=== PATIENT | female | born 1980 | race Caucasian/White ===

== ENCOUNTER 2023-06-15 10:38 | Outpatient (REF) | payer OTHER, SELFPAY ==
[2023-06-15 12:54] LABS: MANUAL DIFF FLAG NO
[2023-06-15 13:03] LABS: Basophils Percent Auto 0.4 % (0-2); Eosinophils Percent Auto 0.4 % (0-4); Hematocrit 42.9 % (37.0-47.0); Hemoglobin 14.2 g/dl (12.0-16.0); Imm Gran Abs Auto 0.02 X10*3/uL (0.00-0.03); Imm Gran Pct Auto 0.2 % (0.0-0.4); Lymphocytes Percent Auto 24.2 % (20-40); Mean Corpuscular HGB Conc 33.1 g/dl (31.0-35.0); Mean Corpuscular Hemoglobin 31.6 pg (27.0-33.0); Mean Corpuscular Volume 95.3 fL (80.0-98.0); Monocytes Absolute Auto 0.5 X10*3/uL (0.1-1.2); Neutrophils Absolute Auto 5.7 x10*3/uL (2.0-8.3); Neutrophils Percent Auto 68.8 % (45-73); Platelet Count 298 X10*3/uL (160-400); Red Cell Distribution Width 14.5 % (11.0-16.0); White Blood Count 8.3 X10*3/uL (4.8-10.8)
[2023-06-15 13:50] LABS: Thyroid Stimulating Hormone 1.11 uIU/mL (0.32-4.0); Vitamin D 25-OH Total 22.5 ng/mL (>30)
[2023-06-15 13:51] LABS: Alanine Aminotransferase 31 U/L (0-31); Albumin Level 4.6 g/dL (3.5-5.0); Alkaline Phosphatase 49 U/L (39-117); Anion Gap 11 (12-20); Aspartate Amino Transferase 33 U/L (5-31); Bilirubin Total 0.7 mg/dL (0.0-1.0); Blood Urea Nitrogen 12 mg/dL (9-16); Calcium 9.7 mg/dL (8.4-10.2); Carbon Dioxide 28 mmol/L (22-29); Chloride 106 mmol/L (96-108); Cholesterol 279 mg/dL (<200); Estimated Glomerular Filt Rate > 60; Glucose Random 101 mg/dL (60-115); HDL Cholesterol 85 mg/dL (>40); LDL Cholesterol Calculated 180 mg/dL (<100); Potassium 4.2 mmol/L (3.3-5.1); Sodium 141 mmol/L (135-145); Total Protein 7.7 g/dL (6.5-8.0); Triglycerides 74 mg/dL (<150)
== END 2023-06-15 10:39 | disposition home or self-care (01) ==
LOC: HO.MANLDS 10:38
PROVIDERS: Visit Provider Internal Medicine
DX: Z00.00 Encounter for general adult medical examination without abnormal findings (principal); Z13.6 Encounter for screening for cardiovascular disorders
CPT/HCPCS: 36415; 80053; 80061; 82306; 84443; 85025

== ENCOUNTER 2024-06-09 11:53 | Outpatient (REF) | payer OTHER, SELFPAY ==
[2024-06-09 13:07] LABS: MANUAL DIFF FLAG NO
[2024-06-09 13:46] LABS: Basophils Percent Auto 0.5 % (0-2); Eosinophils Absolute Auto 0.1 X10*3/uL (0.0-0.4); Eosinophils Percent Auto 0.7 % (0-4); Hemoglobin 12.9 g/dl (12.0-16.0); Imm Gran Abs Auto 0.02 X10*3/uL (0.00-0.03); Imm Gran Pct Auto 0.3 % (0.0-0.4); Lymphocytes Absolute Auto 1.9 X10*3/uL (1.2-4.9); Mean Corpuscular HGB Conc 33.1 g/dl (31.0-35.0); Mean Corpuscular Hemoglobin 31.1 pg (27.0-33.0); Mean Platelet Volume 10.1 fL (9.4-12.3); Monocytes Absolute Auto 0.6 X10*3/uL (0.1-1.2); Monocytes Percent Auto 7.6 % (2-11); Neutrophils Absolute Auto 5.1 x10*3/uL (2.0-8.3); Neutrophils Percent Auto 65.9 % (45-73); Platelet Count 284 X10*3/uL (160-400); Red Blood Count 4.15 X10*6/uL (4.20-5.50); Red Cell Distribution Width 13.9 % (11.0-16.0); White Blood Count 7.7 X10*3/uL (4.8-10.8)
[2024-06-09 14:16] LABS: C Reactive Protein 0.26 mg/dL (< or = 0.50)
[2024-06-09 14:38] LABS: Erythrocyte Sedimentation Rate 9 MM/HR (0-20)
== END 2024-06-09 11:54 | disposition home or self-care (01) ==
LOC: HO.MANLDS 11:53
PROVIDERS: Visit Provider Internal Medicine
DX: M66.0 Rupture of popliteal cyst (principal)
CPT/HCPCS: 36415; 85025; 85652; 86140

== ENCOUNTER 2024-06-20 11:10 | Outpatient (REF) | payer OTHER, SELFPAY ==
--- OUTSIDE RECORDS SUMMARY | 2024-06-20 13:40 | XMS_ITS | Continuity of Care Document ---
Author Organization [facility], [facility] Address [address] [place] [address] [place] [address] Assessment No assessment recorded. Plan of Treatment Reminders Order Date Submit Date Provider Last Modified By Organization Details Last Modified Time Details Appointments ANNUAL EXAM 2024 10:30A M DR FREEMAN Not available Not available Not available Lab iron + TIBC + ferritin, serum 2024 025 [facility], [address] [place] [address], [id number], 06/20/2024 11:03:36 lipid panel, blood 2024 025 [facility], [address] [place] [address], [place], [address], 06/20/2024 11:03:36 CMP, serum or plasma 2024 025 [facility], [address] [place] [place] [address], [id number], 06/20/2024 11:03:36 vitamin D, 25-hydrox y, total, serum 2024 025 [facility], [address] [place] [address], [id number], 06/20/2024 11:03:36 Referral None recorded. Procedures None recorded. Surgeries None recorded. Imaging CT, heart, w/o contrast, w/ coronary calcium score [address] [facility] [place] [address], [address], [place], [address], 06/20/2024 11:02:30 Medication Orders None recorded. Patient TargetsNo targets recorded. Patient InstructionsNo instructions recorded. Reason for Referral None Reported. Results Created Date Observation Date Name Description Value Unit Range Abnormal Flag Note LastModifiedBy Organization Detail LastModifiedTime 05/31/19 25 05/30/2024 MAMMO , scree golden, digit al, bilat eral No observ ation record ed. [email or web address] [facility] [address] [facility] [address] [facility] [address], [place], [address], 05/30/2024 14:52:50 06/09/19 25 06/08/2024 US, duple x, venou s, lower extre mity, unila teral No observ ation record ed. [email or web address] [facility] [address], [place], [address], 06/09/2024 14:16:45 06/10/19 25 06/09/2024 XR, knee, 3 view No observ ation record ed. [email or web address] [facility] [address] , [place], [address], 06/11/2024 21:17:22 06/19/19 25 06/17/2024 MRI, knee, w/o contr ast No observ ation record ed. [email or web address] [facility] [place] [address] [facility] [place] [address] [place] [address], [id number], 06/20/2024 12:19:18 Result Notes None recorded. Problems Name Problem SNOMED Code Status Onset Date Resolution Date Notes Provider Name and Address Organization Details Recorded Time Impacted cerumen 57630759 Active 2021 Not Available [facility] 2 10:48:34 Influenza -like symptoms 141499116 Active 2021 Not Available [facility] 2 10:48:33 Instabili ty of joint of right knee 891932366592 9102 Active 2022 Negro Freeman DO [address] [place] [address], [address], [facility] 3 13:29:59 Melanocyt ic nevus of skin 124766685 Active 2022 Negro Freeman DO [address] [place] [address], [address], [facility] 3 12:30:12 Impacted cerumen of bilateral ears 661259020303 9108 Active 2022 ISAEL CROOKS [address] [place] [address], [address], [facility] 3 11:37:59 Chronic recurrent sinusitis 504364534 Active 2022 ISAEL CROOKS [address] [place] [address], [address], [facility] 3 11:40:11 Orbital celluliti s 892551888 Active 2023 ISAEL CROOKS [address] [place] [address], [address], [facility] 4 19:31:01 Dysplasti c nevus of skin 540578143 Active 2023 Negro Freeman DO [address] [place] [address], [address], [facility] 4 10:26:21 Chronic sinusitis 55547823 Active 2023 Negro Freeman DO [address] [place] [address], [address], [facility] 4 10:29:41 Hyperchol esterolem ia 14930563 Active 2023 Negro Freeman DO [address] [place] [address], [address], [facility] 4 20:56:42 Abnormal weight gain 029922506 Active 2023 ISAEL CROOKS [address] [place] [address], [address], [facility] 4 11:30:49 Loss of hair 144868888 Active 2023 ISAEL CROOKS [address] [place], [address], [facility] 4 11:35:09 Nail changes 975908558 Active 2023 ISAEL CROOKS [address] [place], [address], [facility] 4 11:38:45 Hyperlipi demia 49432878 Active 2023 ISAEL CROOKS [address] [place], [address], [facility] 4 11:41:22 Skin lesion 58353725 Active 2023 ISAEL CROOKS [address] [place] [address], [address], [facility] 4 14:19:39 Celluliti s of skin 483109150 Active 2023 ISAEL CROOKS [address] [place] [address], [address], [facility] 4 14:20:28 Pain in left foot 739078285761 107 Active 2023 ISAEL CROOKS [address] [place] [address], [address], [facility] 4 14:25:17 Pain of left hip joint 057055464726 100 Active 2024 ISAEL CROOKS [address] [place], [address], [facility] 5 09:45:28 Carpal tunnel syndrome of right wrist 615275761160 108 Active 2024 ISAEL CROOKS [address] [place], [address], [facility] 5 09:53:21 Cervical radiculop athy 34910424 Active 2024 ISAEL CROOKS [address] [place], [address], [facility] 5 09:54:23 Pain of left calf 319723382730 9109 Active 2024 ISAEL CROOKS [address] [place], [address], [facility] 5 09:33:09 Rupture of synovial popliteal cyst Active 2024 Negro Freeman, [address], [address], [facility] 5 11:46:43 Serum ferritin above reference range 626654098 Active 2024 Negro Freeman, [address], [address], [facility] 5 11:01:18 Problem Notes None recorded. Procedures Surgical History Date Name Laterality Status Provider Name and Address Organization Details Recorded Time 06/20/19 23 Date of Last Pap Smear completed Shanna Hoang [facility] 06/19/2022 17:01:09 11/06/19 22 Cerumen Removal completed ISAEL CROOKS [address] [place] [address], [address], [facility] 11/05/2021 10:52:27 Appendectomy completed Gia Harris [facility] 09/23/2020 16:43:09 Knee [facility] 16:44:05 Imaging Results None recorded. Procedure Notes None recorded. Medical Equipment None Reported. Allergies No known drug allergies Medications Name Sig Start Date Stop Date Status Note LastModified by Organization Details LastModified Time celecoxib 200 mg capsule TAKE 1 CAPSULE BY MOUTH EVERY DAY 03/27 completed Not Available Not Available Not Available Mirena 21 mcg/24 hr (up to 8 years) 52 mg intrauterin e device Take by intrauter ine route. active Not Available Not Available No t Available prednisone 10 mg tablet 50 mg x 3 days40 mg x 3 days30 mg x 3 days20 mg x 3 days10 mg x 3 days 06/14 completed Not Available Not Available Not Available doxycycline hyclate 100 mg capsule TAKE 1 CAPSULE BY MOUTH TWICE A DAY FOR 7 DAYS 03/27 completed Not Available Not Available Not Available Apri 0.15 mg-0.03 mg tablet TAKE 1 TABLET BY MOUTH EVERY DAY active Not Available Not Available No t Available meloxicam 15 mg tablet ONCE A DAY TAKE 1 TAB WITH FOOD 10/16 completed Not Available Not Available Not Available ondansetron HCl 4 mg tablet TAKE 1 TABLET BY MOUTH EVERY 8 HOURS FOR 3 DAYS 09/23 completed Not Available Not Available Not Available Zyrtec 10 mg tablet Take 1 tablet every day by oral route. 06/09 completed Not Available Not Available Not Available metronidazo le 500 mg tablet TAKE 1 TABLET BY MOUTH EVERY 8 HOURS FOR 10 DAYS DIRECTED 06/14 completed Not Available Not Available Not Available sulfamethox azole 800 mg-trimetho prim 160 mg tablet TAKE 1 TABLET BY MOUTH TWICE A DAY FOR 8 DAYS 07/16 completed Not Available Not Available Not Available doxycycline monohydrate 100 mg tablet TAKE 1 TABLET BY MOUTH TWO TIMES A DAY FOR 14 DAYS 09/23 completed Not Available Not Available Not Available amoxicillin 875 mg tablet TAKE 1 TABLET BY MOUTH EVERY 12 HOURS FOR 7 DAYS 06/09 completed Not Available Not Available Not Available erythromyci n 5 mg/gram (0.5 %) eye ointment APPLY 1 CM RIBBON INTO THE LOWER CONJUNCTI JIMBO SAC OF AFFECTED EYE(S) 3 TIMES PER DAY 11/05 completed Not Available Not Available Not Available oseltamivir 75 mg capsule Take 1 capsule twice a day by oral route for 5 days. 06/09 completed Not Available Not Available Not Available omeprazole 20 mg capsule,del ayed release Take 1 capsule every day by oral route. active Not Available Not Available No t Available montelukast 10 mg tablet Take 1 tablet every day by oral route for 30 days. 06/14 completed Not Available Not Available Not Available loteprednol etabonate 0.5 % eye drops,suspe nsion 1 DROP IN BOTH EYES 3 TIMES A DAY DIRECTED. AFTER 1 WEEK,1 DROP INTO BOTH EYES TWICE DAILY 06/14 completed Not Available Not Available Not Available ibuprofen 600 mg tablet TAKE 1 TABLET BY MOUTH EVERY 8 HOURS FOR 7 DAYS 12/19 completed Not Available Not Available Not Available levofloxaci n 500 mg tablet Take 1 tablet every 24 hours by oral route for 10 days. 06/14 completed Not Available Not Available Not Available ondansetron 4 mg disintegrat ing tablet PLACE 1 TABLET EVERY 4-6 HOURS BY TRANSLING UAL ROUTE NEEDED. 07/16 completed Not Available Not Available Not Available amoxicillin 875 mg-potassiu m clavulanate 125 mg tablet Take 1 tablet every 12 hours by oral route for 10 days. 06/09 completed Not Available Not Available Not Available cyclobenzap rine 5 mg tablet TAKE 1 TABLET BY MOUTH EVERY 12 HOURS NEEDED 06/09 completed Not Available Not Available Not Available Celebrex active Not Available Not Avai lable Not Available Vitals Date Recorded Body height Body mass index (BMI) Body weight Heart rate Oxygen saturation Oxygen saturation in Arterial blood by Pulse oximetry Systolic blood pressure Diastolic blood pressure Provider Name and Address Organization Details Last Updated DateTime 5 169.55 cm 22.7 kg/m2 59979.3 g 69 /min 98 % 98 % 104 mm[Hg] 60 mm[Hg] Danielle Soto [facility] 10:33:37 Social History Question Answer Notes LastModified by Organizat ion Details LastModified Time Tobacco Smoking Status [facility]/2020 12:07:26 What Is Your Level Of Alcohol Consumption? Occasional Information not available 09/23/2020 What Is Your Level Of Caffeine Consumption? Moderate Information not available 09/23/2020 What Was The Date Of Your Most Recent Tobacco Screening? 06/20/2024 [email or web address] Information not available 06/20/2024 Do You Use Any Illicit Or Recreational Drugs? No [email or web address] Information not available 06/09/2022 Do You Or Have You Ever Used Any Other Forms Of Tobacco Or Nicotine? No [email or web address] Information not available 06/20/2024 Sex: Unknown Functional Status Question Answer Note LastModified by Organization D etails LastModified Time What is your exercise level? Moderate Information not available 09/23/2020 Mental Status None recorded. Family History Relationship Description Onset Age of this Age Resolved Age Notes LastModified by Organization Details LastModified Time Maternal Grandmother Malignant neoplastic disease [email or web address] Not available 2024 10:26:59 Paternal Grandmother Malignant neoplastic disease [email or web address] Not available 2024 10:26:59 Paternal Grandfather Heart disease [email or web address] Not available 2020 16:46:11 Paternal Grandfather Cerebrovascu lar accident [email or web address] Not available 02/2021 16:47:17 Father Arthritis tbalicki Not availabl e 09/23/2020 16:46:23 Mother Arthritis tbalicki Not availabl e 09/23/2020 16:46:23 Mother Atrial fibrillation [email or web address] Not available 10/2024 10:26:59 Medical History No medical history recorded. Gynecological History Statement/Question Response Date of Last Pap Smear 06/19/2022 Obstetrics History GPAL:G 0 P 0 0 0 0 Immunizations Vaccine Type Date Status Note Provider Nam e and Address Organization Details Recorded Time COVID-19, mRNA, LNP-S, PF, 30 mcg/0.3 mL dose 1 completed Shanna salamanca [facility] 09/23/2020 12:06:54 COVID-19, mRNA, LNP-S, PF, 30 mcg/0.3 mL dose 1 completed Shanna salamanca [facility] 09/23/2020 12:07:04 Influenza, split virus, quadrivalent, preservative 1 completed Negro Freeman, [address] [place] [address], [address], [facility] 06/03/2021 09:59:58 influenza, unspecified formulation 2 completed Shanna salamanca [facility] 02/16/2022 10:54:28 Past Encounters Encounter ID Performer Location Encounter Start Date Encounter Closed Date Diagnosis/Indication Diagnosis SNOMED-CT Code Diagnosis ICD10 Code Diagnosis Note [id number] [facility] [address] [facility],[place] [address] 06/07/2024 09:20:00 06/07/2024 10:32:27 Pain of left calf 8390535424 638420 M79.662 [id number] Negro Freeman [facility] [address] [facility],[place] [address] 06/20/2024 10:26:34 06/20/2024 11:08:17 Hypercholesterolemia 08011170 E78.00 Serum ferr itin above reference range 422779164 R77.8 [id number] Negro Freeman [facility] [address] [facility], [place] [facility] [place] [address] 06/09/2024 11:27:36 06/09/2024 12:07:32 Rupture of synovial popliteal cyst 3899294030 M66.0 severe pain Health Concerns Section Related Observation LastModified by Organization Detai ls LastModified Time None Recorded Concern Status LastModified by Organization Details LastModified Time None Recorded Payers Encounter Date Sequence Insurance Name Policy Number Policy Cool Covered Member ID Cool Member ID Guarantor Name 06/20/2024 1 [facility] (POS) [id number] Sarthak Garcia [id number] Nasreen Garcia OBGykarin Episode No OBEpisode recorded.
--- OUTSIDE RECORDS SUMMARY | 2024-06-20 13:40 | XMS_ITS | Clinical Summary ---
Author Organization [facility] Address [address] [place] [address] Care Team Providers Care Ems Educator Name Role Phone Fly Wagner DO Primary Care Provider [phone] Social History Tobacco Use Types Packs/Day Years Used Date Smoking Tobacco: Never Assessed Sex and Gender Information Value Date Recorded Sex Assigned at Not on file Gender Identity Not on file Sexual Orientation Not on file Plan of Treatment Health Maintenance Due Date Last Done Comments Hepatitis B Vaccines (1 of 3 - 3-dose series) 1978 Hepatitis C Screening 1978 COVID-19 Vaccine (#1) 01/06/1979 Depression Screening 1990 Preventative Health Evaluation 1996 DTap / Tdap / Td (1 - Tdap) 1997 Cervical Cancer Screening (P ap Smear) 07/08/1999 Colon Cancer Screening (Colonoscopy) 07/08/2023 Influenza Vaccine (#1) 2023 Pneumococcal Vaccine Aged Out No long er eligible based on patient's age to complete this topic RSV Ped < 20 months Aged Out No longe r eligible based on patient's age to complete this topic Care Teams Ems Educator Relationship Specialty Start Date End Date Fly Wagner DO [address] [place] [id number] PCP - General Family Medicine 05/07/15
--- OUTSIDE RECORDS SUMMARY | 2024-06-20 13:40 | XMS_ITS | Data Portability ---
Author Organization [place] - [facility], Allergy Address [address] [place] [address] Care Team Providers Care Shoe Handler Name Role Phone DINA FREEMAN Primary Care Provider Assessment No assessment recorded. Plan of Treatment Reminders Order Date Submit Date Provider Last Modified By Organization Details Last Modified Time Details Appointments None record ed. Lab None record ed. Referral None record ed. Procedures None record ed. Surgeries None record ed. Imaging None record ed. Medication Orders None record ed. Patient TargetsNo targets recorded. Patient InstructionsNo instructions recorded. Reason for Referral None Reported. Results Created Date Observation Date Name Description Value Unit Range Abnormal Flag Note LastModifiedBy Organization Detail LastModifiedTime 02/02/20 24 10/29/2022 CT, maxil lofac ial, w/o contr ast No observ ation record ed. [email or web address] Not Available 01/14 12:54:53 02/03/20 audio gram No observ ation record ed. BARCODE Not Available 2023 12:31:49 Result Notes None recorded. Problems Name Problem SNOMED Code Status Onset Date Resolution Date Notes Provider Name and Address Organization Details Recorded Time Chronic tonsillit is 11192816 Active 2019 Chronic tonsilli tis; Note: Date Diagnose d: 0 3:36 PM (J35.01) Not Available [facility] 4 03:28:03 Chronic disease of tonsils AND/OR adenoids 96606979 Active 2019 Amygdalo lith; Note: Date Diagnose d: 0 3:36 PM (J35.8) Not Available [facility] 4 03:28:03 Chronic right maxillary sinusitis 854127466345 89528 Active 2023 ADINA VÁSQUEZ MD [address] [facility],[place] [address], [place], [address] , [facility] - [facility] 4 11:45:50 Otalgia of left ear 6308967508 Active 2023 ADINA VÁSQUEZ MD [address] [place] [address], [place], [address] , [facility] - [facility] 4 11:45:57 Impacted cerumen in left ear 717424966702 9101 Active 2023 ADINA VÁSQUEZ MD [address] [place] [address], [place], [address] , [facility] 4 11:48:13 Abnormal auditory perceptio n 31208667 Active 2023 MIRTHA OSWALD [address] [place] [address], [place], [address] , [facility] - [facility] 4 12:01:10 Bilateral subjectiv e pulsatile tinnitus of ears 548010360879 9102 Active 2023 ADINA VÁSQUEZ MD [address] [place] [address],[place] [address], [place], [address] , [facility] - [facility] 4 12:16:15 Problem Notes None recorded. Procedures Surgical History Date Name Laterality Status Provider Name and Address Organization Details Recorded Time 02/02/20 24 Cerumen removal without microscope left completed ADINA VÁSQUEZ MD [address] [place] [address],[place] [address], [place], [address], [facility] - [facility] 02/02/2024 11:46:49 02/02/20 24 NasalEndoscopy_D P completed ADINA VÁSQUEZ MD [address] [place] [address],[place] [address], [place], [address], [facility] - [facility] 02/02/2024 11:45:39 02/02/20 24 Air & Speech Audio with Tymps (66794, 08404 & 54673) completed RITIKA VARMA, AUD [address] [facility],[place] [address], [place], [address], [place] - [facility] 02/02/2024 12:00:56 operative procedure on knee completed Ivory Mcnair [place] - [facility] 02/02/2024 11:25:08 Appendectomy completed Ivory Mcnair [place] - [facility] 02/02/2024 11:25:15 Imaging Results Imaging Date Name Status LastModified by Organiz ation Details LastModified Time 10/29/2022 CT, maxillofacial, w/o contrast completed [email or web address] Information not available 02/02/2024 12:54:53 02/03/2024 audiogram completed BARCODE Information no t available 02/03/2024 12:31:49 Procedure Notes None recorded. Medical Equipment None Reported. Medications Name Sig Start Date Stop Date Status Note LastModified by Organization Details LastModified Time prednisone 10 mg tablet TAKE 5 TABS X3DAYS, 4 TABS X3DAYS, 3 TABS X3DAYS, 2 TABS X3DAYS, 1 TAB X3DAYS active Not Available Not Available No t Available doxycyclin e hyclate 100 mg capsule TAKE 1 CAPSULE BY MOUTH TWICE A DAY FOR 7 DAYS active Not Available Not Available No t Available metronidaz ole 500 mg tablet TAKE 1 TABLET BY MOUTH EVERY 8 HOURS FOR 10 DAYS DIRECTED active Not Available Not Available No t Available valacyclov ir 500 mg tablet 2018 active Medicatio n ID: [id number] Du ration Value: 15 Brand Name: valacyclo vir Send Method: E-Prescri bed Subs Allowed: subs OK Specia l Instructi on: TAKE 1 TABLET BY MOUTH TWICE A DAY FOR 3 DAYS Medi cationGen ericName: valacyclo vir Not Available Not Available Not Available baclofen 20 mg tablet 2018 active Medicatio n ID: [id number] Du ration Value: 5 Brand Name: baclofen Send Method: E-Prescri bed Subs Allowed: subs OK Specia l Instructi on: TAKE 1 TABLET BY MOUTH FOUR TIMES A DAY Medic ationGene ricName: baclofen Not Available Not Available Not Available clotrimazo le-betamet hasone 1 %-0.05 % topical cream 2018 active Medicatio n ID: [id number] Du ration Value: 10 Brand Name: clotrimaz ole-betam ethasone Send Method: E-Prescri bed Subs Allowed: subs OK Specia l Instructi on: APPLY TO EXTERNAL AREA SPARINGLY 4 TIMES A DAY FOR UP TO TWO WEEKS Med icationGe nericName : clotrimaz ole-betam ethasone Not Available Not Available Not Available diclofenac sodium 75 mg tablet,del ayed release active Medicatio n ID: [id number] Du ration Value: 90 Brand Name: diclofena c sodium Se nd Method: E-Prescri bed Subs Allowed: subs OK Medica tionGener icName: diclofena c sodium Not Available Not Available Not Available lotepredno l etabonate 0.5 % eye drops,susp ension 1 DROP IN BOTH EYES 3 TIMES A DAY DIRECTED. AFTER 1 WEEK,1 DROP INTO BOTH EYES TWICE DAILY active Not Available Not Available No t Available levofloxac in 500 mg tablet TAKE 1 TABLET BY MOUTH EVERY 24 HOURS FOR 10 DAYS active Not Available Not Available No t Available Fluzone Quad active Medicatio n ID: [id number] Du ration Value: 1 Brand Name: Fluzone Quad Send Method: E-Prescri bed Subs Allowed: subs OK Medica tionGener icName: Fluzone Quad Not Available Not Available Not Available Vitals Date Recorded Body height Body mass index (BMI) Body weight Provider Name and Address Organization Details Last Updated DateTime 02/02/2024 167.64 cm 22.6 kg/m2 58605.93 g Ivory Mcnair [place] - [facility] 02/02/2024 11:23:16 Social History None recorded. Functional Status None recorded. Mental Status None recorded. Family History Nothing Reported. Medical History No medical history recorded. Gynecological HistoryNo gynecological history recorded. Obstetrics History GPAL:G 0 P 0 0 0 0 Past Encounters Encounter ID Performer Location Encounter Start Date Encounter Closed Date Diagnosis/Indication Diagnosis SNOMED-CT Code Diagnosis ICD10 Code Diagnosis Note [id number] ADINA VÁSQUEZ MD [facility] [address] [address] 02/02/2024 10:37:37 02/02/2024 12:42:12 Chronic right maxillary sinusitis [id number] 5171688 J32.0 Gave reassuranc e no polyps or purulence on nasal endoscopy and no current symptoms. I recommend observatio n. Otalgia of left ear 1010 295933 H92.02 Ear exam normal except for cerumen which I removed. She may get recurrent swimmers ear as she mentioned it usually occurs in the summer related to swimming. Impacted c erumen in left ear 0059514823 806265 H61.22 Recurrent Cerumen Impactions : Ears were meticulous ly cleaned bilaterall y today with a curette and suction. The patient tolerated this well and will follow up for repeat debridemen t per routine. Abnormal a uditory perception 10294998 H93.299 Audiologic al evaluation results: Right ear: {{Normal* Normal through 2 kHz Mild M oderate Mo derately-s evere Jenn re Profoun d}} {{hearing* hearing. sloping to a mild slopi ng to a moderate s loping to moderately severe slo ping to severe slo ping to profound f lat high frequency low frequency mid frequency cookie bite carney curve}} {{with* se nsorineura l hearing loss with condu ctive hearing loss with mixed hearing loss with}} {{excellen t* good fa ir poor no measurable }} word recognitio n. Left ear: {{Normal* Normal through 2 kHz Mild M oderate Mo derately-s evere Jenn re Profoun d}} {{hearing* hearing. sloping to a mild slopi ng to a moderate s loping to moderately severe slo ping to severe slo ping to profound f lat high frequency low frequency mid frequency cookie bite carney curve}} {{with* se nsorineura l hearing loss with condu ctive hearing loss with mixed hearing loss with}} {{excellen t* good fa ir poor no measurable }} word recognitio n. Tympanomet ry: Right Ear:{{Type A* Type As Type Ad Type C Type C, shallow & rounded Ty pe B Type B with large volume Cou ld not maintain a hermetic seal}} Left Ear:{{Type A* Type As Type Ad Type C Type C, shallow & rounded Ty pe B Type B with large volume Cou ld not maintain a hermetic seal}} Bilateral subjective pulsatile tinnitus of ears [id number] 925274 H93.A3 intermitte nt adn bilateral. recommend observatio n. asked to call back if it becomes consistent or unilateral . Health Concerns Section Related Observation LastModified by Organization Detai ls LastModified Time None Recorded Concern Status LastModified by Organization Details LastModified Time None Recorded Advance Directives Directive None Recorded Payers Encounter Date Sequence Insurance Name Policy Number Policy Cool Covered Member ID Cool Member ID Guarantor Name 02/02/2024 1 [facility] - FAMILY [employer] PLAN (POS) [id number] Nasreen Garcia [id number] Nasreen Garcia Notes Date Note Type Note Provider Name and Address Organization Details Recorded Time 02/02/2024 text/html In the summer of 2022 she was having trouble with her left ear. She went to the ER and had a CT which showed an opacified hypoplastic right maxillary sinus with otherwise clear sinuses. Denies right facial pain. She feels the left ear is clogged all the time. Her hearing feels muffled. She has occasional rare earache on the left (about 3-4 times per year). It is worse when she is swimming. No current ear pain today. Notes occasional bilateral pulsatile tinnitus AU. It is not always present. ADINA VÁSQUEZ MD [address] [place] [address], [place], [address], [place] - [facility] 02/02/2024 12:16:44 OBGyn Episode No OBEpisode recorded.
[2024-06-20 14:12] LABS: Alanine Aminotransferase 21 U/L (0-31); Albumin Level 4.4 g/dL (3.5-5.0); Alkaline Phosphatase 48 U/L (39-117); Anion Gap 10 (12-20); Aspartate Amino Transferase 24 U/L (5-31); Bilirubin Total 0.6 mg/dL (0.0-1.0); Blood Urea Nitrogen 10 mg/dL (9-16); Calcium 9.2 mg/dL (8.4-10.2); Carbon Dioxide 23 mmol/L (22-29); Chloride 110 mmol/L (96-108); Cholesterol 222 mg/dL (<200); Estimated Glomerular Filt Rate > 60; Glucose Random 97 mg/dL (60-115); HDL Cholesterol 68 mg/dL (>40); Iron 101 mcg/dL (30-160); LDL Cholesterol Calculated 145 mg/dL (<100); Percent Iron Saturation 34 % (15-50); Potassium 3.9 mmol/L (3.3-5.1); Sodium 139 mmol/L (135-145); Total Iron Binding Capacity 300 mcg/dL (228-428); Triglycerides 49 mg/dL (<150); Unsaturated Iron Binding 199 ug/dL
[2024-06-20 14:15] LABS: Ferritin 184 ng/mL (10-250)
[2024-06-24 08:38] LABS: VITAMIN D (1,25 OH) D3 68 pg/mL; Vit D (1,25-Dihydroxy) Total 68 pg/mL (18-72); Vitamin D (1,25 OH) D2 <8 pg/mL
== END 2024-06-20 11:11 | disposition home or self-care (01) ==
LOC: HO.MANLDS 11:10
PROVIDERS: Visit Provider Internal Medicine
DX: E78.00 Pure hypercholesterolemia, unspecified (principal); R77.8 Other specified abnormalities of plasma proteins
CPT/HCPCS: 36415; 80053; 80061; 82652; 82728; 83540

== ENCOUNTER → 2024-12-13 07:55 | Outpatient (REF) | payer OTHER, SELFPAY ==
--- OUTSIDE RECORDS SUMMARY | 2024-12-13 08:00 | XMS_ITS | Data Portability ---
Author Organization [place] - [facility], Allergy Address [address] [address] Care Team Providers Care Underground Mine Superintendent Name Role Phone DINA FREEMAN Primary Care Provider [phone] Assessment No assessment recorded. Plan of Treatment [...] contr ast No observ ation record ed. [email or web address] Not Available 01/14 12:54:53 02/03/20 audio gram No observ ation record ed. BARCODE Not Available 2023 12:31:49 Result Notes None recorded. Problems Name Problem SNOMED Code Status Onset Date Resolution Date Notes Provider Name and Address Organization Details Recorded Time Chronic tonsillit is 15622377 Active 2019 Chronic tonsilli tis; Note: Date Diagnose d: 0 3:36 PM (J35.01) Not Available [facility] 4 03:28:03 Chronic disease of tonsils AND/OR adenoids 01852778 Active 2019 Amygdalo lith; Note: Date Diagnose d: 0 3:36 PM (J35.8) Not Available [facility] 4 03:28:03 Chronic right maxillary sinusitis 547609528295 76797 Active 2023 ADINA VÁSQUEZ MD [address] [facility],[place] [address], [place], [address] , [facility] - [facility] 4 11:45:50 Otalgia of left ear 7251624924 Active 2023 ADINA VÁSQUEZ MD [address] [place] [address],[place] [address], [place], [place], [address] , [facility] - [facility] 4 11:45:57 Impacted cerumen in left ear 741418516786 9101 Active 2023 ADINA VÁSQUEZ MD [address] [place] [address],[place] [address], [place], [address] , [facility] - [facility] 4 11:48:13 Abnormal auditory perceptio n 79013262 Active 2023 MIRTHA OSWALD [address] [place] [address],[place] [address], [place], [address] , [facility] - [facility] 4 12:01:10 Bilateral subjectiv e pulsatile tinnitus of ears 370733463678 9102 Active 2023 ADINA VÁSQUEZ MD [address] [facility],[place] [address], [place], [address] , [facility] - [facility] 4 12:16:15 Problem Notes None recorded. Procedures Surgical History Date Name Laterality Status Provider Name and Address Organization Details Recorded Time 02/02/20 24 Cerumen removal without microscope left completed ADINA VÁSQEUZ MD [address] [facility] [place] [address], [place], [address], [facility] - [facility] 02/02/2024 11:46:49 02/02/20 24 NasalEndoscopy_D P completed ADINA VÁSQUEZ MD [address] [facility] [place] [address], [place], [address], [facility] - [facility] 02/02/2024 11:45:39 02/02/20 24 Air & Speech Audio with Tymps - 69386, [address] & [address] completed RITIKA VARMA, AUD [address] [facility],[place] [address], [place], [address], [place] - [facility] 02/02/2024 12:00:56 operative procedure on knee completed Ivory Mcnair [place] - [facility] 02/02/2024 11:25:08 Appendectomy completed Ivory Mcnair [place] - [facility] 02/02/2024 11:25:15 Imaging Results None recorded. Procedure Notes None [...] mg tablet 2018 active Medicatio n ID: [id number] Du ration Value: 15 Brand Name: valacyclo vir Send Method: E-Prescri bed Subs Allowed: subs OK Specia l Instructi on: TAKE 1 TABLET BY MOUTH TWICE A DAY FOR 3 DAYS Medi cationGen ericName: valacyclo vir Not Available Not Available Not Available baclofen 20 mg tablet 2018 active Medicatio n ID: [id number] Du ration Value: 5 Brand Name: baclofen Send Method: E-Prescri bed Subs Allowed: subs OK Specia l Instructi on: TAKE 1 TABLET BY MOUTH FOUR TIMES A DAY Medic ationGene ricName: baclofen Not Available Not Available Not Available clotrimazo le-betamet hasone 1 %-0.05 % topical cream 2018 active Medicatio n ID: [id number] Du ration Value: 10 Brand Name: clotrimaz ole-betam ethasone Send Method: E-Prescri bed Subs Allowed: subs OK Specia l Instructi on: APPLY TO EXTERNAL AREA SPARINGLY 4 TIMES A DAY FOR UP TO TWO WEEKS Med icationGe nericName : clotrimayaalicia ole-betam ethasone Not Available Not Available Not Available diclofenac sodium 75 mg tablet,del ayed release active Medicatio n ID: [id number] Du ration Value: 90 Brand Name: diclofena [...] Available Fluzone Quad active Medicatio n ID: [id number] Du ration Value: 1 Brand Name: Fluzone Quad Send Method: E-Prescri bed Subs Allowed: subs OK Medica tionGener icName: Fluzone Quad Not Available Not Available Not Available Vitals Date Recorded Body height Body mass index (BMI) Body weight Provider Name and Address Organization Details Last Updated DateTime 02/02/2024 167.64 cm 22.6 kg/m2 20299.93 g Ivory Mcnair [place] - [facility] 02/02/2024 11:23:16 Social History None recorded. Functional Status None recorded. Mental Status None recorded. Family History Nothing Reported. Medical History No medical history recorded. Gynecological HistoryNo gynecological history recorded. Obstetrics History GPAL:G 0 P 0 0 0 0 Past Encounters Encounter ID Performer Location Encounter Start Date Encounter Closed Date Diagnosis/Indication Diagnosis SNOMED-CT Code Diagnosis ICD10 Code Diagnosis IMO Codes Diagnosis Note [id number] ADINA VÁSQUEZ MD [facility] [address] [address] 02/02/2024 10:37:37 02/02/2024 12:42:12 Chronic right maxillary sinusitis 6940194884 8772788 J32.0 Gave reassuranc e no polyps or purulence on nasal endoscopy and no current symptoms. I recommend observatio n. Otalgia of left ear 1010 849126 H92.02 Ear exam normal except for cerumen which I removed. She may get recurrent swimmers ear as she mentioned it usually occurs in the summer related to swimming. Impacted c erumen in left ear 2399966033 255146 H61.22 Recurrent Cerumen Impactions : Ears were meticulous ly cleaned bilaterall y today with a curette and suction. The patient tolerated this well and will follow up for repeat debridemen t per routine. Abnormal a uditory perception 66503029 H93.299 Audiologic al evaluation results: Right ear: Normal hearing with excellent word recognitio n. Left ear: Normal hearing with excellent word recognitio n. Tympanomet ry: Right Ear:Type A Left Ear:Type A Bilateral subjective pulsatile tinnitus of ears 3337801027 478385 H93.A3 intermitte nt adn bilateral. recommend observatio n. asked to call back if it becomes consistent or unilateral . Health Concerns Section Related Observation LastModified by Organization Detai ls LastModified Time None Recorded Concern Status LastModified by Organization Details LastModified Time None Recorded Advance Directives Directive None Recorded Payers Insurance Date Sequence Insurance Name Policy Number Policy Cool Covered Member ID Cool Member ID Guarantor Name 02/02/2024 1 [facility] - FAMILY HEALTH PLAN (POS) [id number] Nasreen Garcia [id number] Nasreen Garcia Notes Date Note Type Note Provider Name and Address Organization Details Recorded Time 02/02/2024 text/html ROS as noted in the HPI In the summer of 2022 she was [...] is not always present. ADINA VÁSQUEZ MD [address] [place] [address], [place], [address], [facility] - [facility] 02/02/2024 12:16:44 OBGyn Episode No OBEpisode recorded.
--- OUTSIDE RECORDS SUMMARY | 2024-12-13 08:00 | XMS_ITS | Clinical Summary ---
Author Organization [facility] Address [address] [place] [address] Phone Care Team Providers Care Plant Technical Specialist Name Role Phone Negro Gonzáles Primary Care Provider [phone] Social History Tobacco Use Types Packs/Day Years Used Date Smoking Tobacco: Never Assessed Education Answer Date Recorded Are you interested in more education? Not on margaret e 07/11/2022 Are you concerned about learning? Not on file 07/11/2022 No 07/11/2022 No 07/11/2022 Digital Access Answer Date Recorded No 08/11/2022 No 08/11/2022 Reliable internet access at home? Not on file 08/11/2022 Device with a working camera? Not on file Comments Unknown Sex and Gender Information Value Date Recorded Sex Assigned at Not on file Legal Sex Female 1:43 PM EDT Gender Identity Not on file Sexual Orientation Not on file Plan of Treatment Not on file Medical Devices Not on file Insurance [facility] FAMILY [facility]AN [facility] [place] [facility] [place] [address] [facility] [place] [id number] [facility] [place] [address] [facility] [place] [address] [facility] FAMILY HEALTH PLAN Care Teams Plant Technical Specialist Relationship Specialty Start Date End Date Negro Gonzáles DO [email or web address] PCP - General Internal Medicine 09/23/20 Additional Source Comments The information contained in this document represents components of the legal health record. It is not the complete legal health record.[facility]
--- OUTSIDE RECORDS SUMMARY | 2024-12-13 08:00 | XMS_ITS | Data Portability ---
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) MDM MODERATE MUST MEET 2 OUT OF 3 ELEMENTS: PROBLEMS, DATA OR RISK ELEMENT 1: PROBLEMS ADDRESSED 1 OR MORE CHRONIC ILLNESS WITH EXACERBATION OR 2 OR MORE STABLE CHRONIC ILLNESSES OR 1 UNDIAGNOSED NEW PROBLEM OR 1 ACUTE ILLNESS W/SYMPTOMS OR 1 ACUTE COMPLICATED INJURY ELEMENT 2: DATA MUST MEET 1 OF 3 CATEGORIES CATEGORY 1: REVIEW OF PRIOR EXTERNAL NOTES, REVIEW OF RESULTS, ORDERING OF EACH TEST, ASSESSMENT REQUIRING INDEPENDENT HISTORIAN OR CATEGORY 2: INDEPENDENT INTERPRETATION OF TESTS BY ANOTHER PHYSICIAN OR SPECIALIST OR CATEGORY 3: DISCUSSION OF MGT OR TEST INTERPRETATION W/EXTERNAL PHYSICIAN OR SPECIALIST ELEMENT 3: RISK RISK OF COMPLICATIONS AND/OR MORBIDITY OR MORTALITY OF PATIENT MANAGEMENT PROVIDER MUST THOROUGHLY DOCUMENT EACH ELEMENT THAT IS COVERED [email or web address] Not available 06/16/2024 13:25:25 Plan of Treatment Reminders Order Date Submit Date Provider Last Modified By Organization Details Last Modified Time Details Appointments FOLLOW UP 15 2024 11:15A ISAEL BRAR Not available Not available Not available Lab PT/PTT, plasma 2024 025 [facility], [address] [place], [address], 10/25/2024 15:27:31 plasminog en activator inhibitor -1 (alfredo-1), plasma 20242 025 ATHENAFAX [facility], [address] [place], [address], 10/25/2024 15:27:31 antiphosp holipid antibody panel, serum 2024 [facility], [address] [facility], [place], [address], 10/25/2024 15:27:31 GABINO + rf (antinucl ear antibodie s + rheumatoi d factor), quantitat daniel, serum 2024 [facility], [address] [facility], [place], [address], 10/25/2024 15:27:31 ccp (cyclic citrullin ated peptide) iga+igg, serum 2024 [facility], [address] [facility], [place], [address], 10/25/2024 15:27:32 dsDNA Ab, serum 2024 [facility], [address] [facility], [place], [address], 10/25/2024 15:27:31 sjogren antibody panel (ssa, ssb, ro, la), serum 2024 [facility], [address] [facility], [place], [address], 10/25/2024 15:27:31 C reactive protein, QN, serum or plasma 2024 [facility], [address] [facility], [place], [address], 10/25/2024 15:27:32 ESR (erythroc yte sedimenta tion rate), blood 2024 025 [facility], [address] [place] [address], [place], [address], 10/25/2024 15:27:31 PT/INR 2024 025 [facility], [address] [facility], [place], [address], 10/25/2024 15:27:31 CBC w/ auto diff 2024 025 [facility], [address] [facility], [place], [address], 10/25/2024 15:27:32 factor V mutation, blood or tissue 2024 025 [facility], [address] [facility], [place], [address], 10/25/2024 15:27:32 protein C + protein S, functiona l panel, plasma 2024 025 [facility], [address] [facility], [place], [address], 10/25/2024 15:27:31 factor VIII activity, plasma 2024 025 [facility], [address] [facility], [place], [address], 10/25/2024 15:27:31 fibrinoge n activity, blood/kelsea sma 2024 025 [facility], [address] [facility], [place], [address], 10/25/2024 15:27:31 factor IX activity, plasma 2024 025 [facility], [address] [facility], [place], [address], 10/25/2024 15:27:31 iron + TIBC + ferritin, serum 2024 025 [facility], [address] [place] [address], [place], [address], 06/20/2024 11:03:36 lipid panel, blood 2024 025 [facility], [address] [place] [address], [address], 06/20/2024 11:03:36 CMP, serum or plasma 2024 025 [facility], [address] [place] [address], [address], 06/21/2024 13:51:17 vitamin D, 25-hydrox y, total, serum 2024 025 [facility], [address] [place] [address], [address], 06/26/2024 11:28:24 ESR (erythroc yte sedimenta tion rate), blood 2024 025 [facility], [address] [place] [address], [address], 06/12/2024 11:52:08 CBC 2024 025 [facility], [address] [place] [address], [address], 06/12/2024 11:52:08 CRP, high sensitivi ty, serum or plasma 2024 025 [facility], [address] [place] [address], [address], 06/12/2024 11:52:08 Referral None recorded. Procedures None recorded. Surgeries None recorded. Imaging US, echocardi ogram - has CTA scheduled 12/22/24, needs f/u US echo due to blood clot 2024 025 [email or web address] 10 [facility], [address] [place], [address], 11/08/2024 12:30:51 CT, angiogram , chest, w/wo contrast 2024 025 [email or web address] [facility], [address] [facility] [place], [address], 10/27/2024 09:23:57 home sleep study 2024 025 [email or web address] 10 [facility], [address], [place], [address], 11/08/2024 12:39:56 US, echocardi ogram - 3 mos f/u 2024 025 [email or web address] 10 [facility], [address], [place], [address], 11/08/2024 12:45:21 CT, heart, w/o contrast, w/ coronary calcium score 2024 025 [facility], [address] [place], [address], 09/29/2024 11:31:33 MRI, knee, w/o contrast 2024 025 [email or web address] [facility], [address], [place], [address], 06/16/2024 08:41:47 XR, knee, 3 view 2024 025 [email or web address], [address] [place], [address], 06/09/2024 15:58:00 Medication Orders Eliquis 5 mg tablet 2024 025 [facility], [address] [place] [address], [address], 11/06/2024 09:12:06 Patient TargetsNo targets recorded. Patient InstructionsNo instructions recorded. Reason for Referral None Reported. Results Created Date Observation Date Name Description Value Unit Range Abnormal Flag Note LastModifiedBy Organization Detail LastModifiedTime 05/12/1905/12/2024 MAMMO , scree golden, digit al, bilat eral No observ ation record ed. [facility] [address] [place], [address], 05/12/2024 15:28:26 05/31/19 25 05/30/2024 MAMMO , scree golden, digit al, bilat eral No observ ation record ed. [email or web address] [facility] [address] [facility] [address], [place], [address], 05/30/2024 14:52:50 06/09/19 25 06/08/2024 US, duple x, venou s, lower extre mity, unila teral No observ ation record ed. [email or web address] [facility] [address], [place], [address], 06/09/2024 14:16:45 06/10/19 25 06/09/2024 XR, knee, 3 view No observ ation record ed. [email or web address] [facility] [address] , [place], [address], 06/11/2024 21:17:22 06/19/19 25 06/17/2024 MRI, knee, w/o contr ast No observ ation record ed. [email or web address] [facility] [address], [place], [address], 06/20/2024 16:21:33 09/30/19 25 09/21/2024 CT, heart , w/o contr ast, w/ coron anali calci um score No observ ation record ed. [email or web address] [facility] [address] [facility] [address], [place], [address], 10/02/2024 10:18:36 10/20/19 25 10/16/2024 imagi ng/di agnos tic resul t No observ ation record ed. [email or web address] Not Available 2024 08:09:19 Result Notes None recorded. Problems Name Problem SNOMED Code Status Onset Date Resolution Date Notes Provider Name and Address Organization Details Recorded Time Impacted cerumen 77346026 Active 2021 Not Available [facility] 10:48:34 Influenza -like symptoms 196364762 Active 2021 Not Available [facility] 2 10:48:33 Instabili ty of joint of right knee 337068381409 9102 Active 2022 Negro Gonzáles, [address] [place] [address], [address], [facility] 3 13:29:59 Melanocyt ic nevus of skin 262323813 Active 2022 Negro Gonzáles, [address] [place] [address], [address], [facility] 3 12:30:12 Impacted cerumen of bilateral ears 174902612273 9108 Active 2022 ISAEL CROOKS [address] [place] [address], [address], [facility] 3 11:37:59 Chronic recurrent sinusitis 951785853 Active 2022 ISAEL CROOKS [address] [place] [address], [address], [facility] 3 11:40:11 Orbital celluliti s 537585291 Active 2023 ISAEL CROOKS [address] [place] [address], [address], [facility] 4 19:31:01 Dysplasti c nevus of skin 679565407 Active 2023 Negro Gonzáles DO [address] [place] [address], [address], [facility] 4 10:26:21 Chronic sinusitis 18158746 Active 2023 Negro Gonzáles DO [address] [place] [address], [address], [facility] 4 10:29:41 Hyperchol esterolem ia 34104979 Active 2023 Negro Gonzáles DO [address] [place] [address], [address], [facility] 4 20:56:42 Abnormal weight gain 260168339 Active 2023 ISAEL CROOKS [address] [place], [address], [facility] 4 11:30:49 Loss of hair 407419957 Active 2023 ISAEL CROOKS [address] [place], [address], [facility] 4 11:35:09 Nail changes 996284226 Active 2023 ISAEL CROOKS [address] [place], [address], [facility] 4 11:38:45 Hyperlipi demia 50456738 Active 2023 ISAEL CROOKS [address] [place], [address], [facility] 4 11:41:22 Skin lesion 93676383 Active 2023 ISAEL CROOKS [address] [place] [address], [address], [facility] 4 14:19:39 Celluliti s of skin 556577125 Active 2023 ISAEL CROOKS [address] [place] [address], [address], [facility] 4 14:20:28 Pain in left foot 067422814600 107 Active 2023 ISAEL CROOKS [address] [place] [address], [address], [facility] 4 14:25:17 Pain of left hip joint 621261861249 100 Active 2024 ISAEL CROOKS [address] [place] [address], [address], [facility] 5 09:45:28 Carpal tunnel syndrome of right wrist 321367115983 108 Active 2024 ISAEL CROOKS [address] [place], [address], [facility] 5 09:53:21 Cervical radiculop athy 14536873 Active 2024 ISAEL CROOKS [address] [place], [address], [facility] 5 09:54:23 Pain of left calf 129098944360 9109 Active 2024 ISAEL CROOKS [address] [place], [address], [facility] 5 09:33:09 Rupture of synovial popliteal cyst Active 2024 Negro Gonzáles, DO [address] [place] [address], [address], [facility] 5 11:46:43 Serum ferritin above reference range 718834231 Active 2024 Negro Gonzáles, DO [address] [place] [address], [address], [facility] 5 11:01:18 Pulmonary embolism 82980376 Active 2024 ISAEL CROOKS [address] [place] [address], [address], [facility] 5 12:37:56 Intramura l leiomyoma of uterus 52039188 Active 2024 ISAEL CROOKS [address] [place] [address], [address], [facility] 5 15:04:51 Menopausa l flushing 812165102 Active 2024 ISAEL CROOKS [address] [place] [address], [address], [facility] 5 15:15:08 Dyspnea 657972647 Active 2024 ISAEL CROOKS [address] [place], [address], [facility] 5 16:43:37 Problem Notes None recorded. Procedures Surgical History Date Name Laterality Status Provider Name and Address Organization Details Recorded Time 06/20/19 23 Date of Last Pap Smear completed Shanna Hoang [facility] 06/19/2022 17:01:09 11/06/19 22 Cerumen Removal completed ISAEL CROOKS [address] [place], [address], [facility] 11/05/2021 10:52:27 [facility] 09/23/2020 16:43:09 Knee Surgery completed Gia [facility] 09/23/2020 16:44:05 Imaging Results None recorded. Procedure Notes None recorded. Medical Equipment None Reported. Allergies Allergen ID Allergen Name Allergen Category Reaction Reaction Severity Criticality Documentation Date Start Date Code Code System Note Provider Name and Address Organization Details Recorded Time 54 cortisone medicatio n Not available Not available Not available 10/25/2024 2878 RxNorm ISAEL CROOKS [address] [place], [address], [facility] 15:00:58 Medications Name Sig Start Date Stop Date Status Note LastModified by Organization Details LastModified Time celecoxib 200 mg capsule TAKE 1 CAPSULE BY MOUTH EVERY DAY 03/27 completed Not Available Not Available Not Available Mirena 21 mcg/24 hr (up to 8 years) 52 mg intrauterin e device Take by intrauter ine route. 10/25 completed Not Available Not Available Not Available prednisone 10 mg tablet 50 mg [...] TAKE 1 TABLET BY MOUTH EVERY DAY 10/25 completed Not Available Not Available Not Available meloxicam 15 mg tablet ONCE A DAY TAKE 1 TAB WITH FOOD 10/16 completed Not Available Not Available Not Available ondansetron HCl 4 mg tablet TAKE 1 TABLET BY MOUTH EVERY 8 HOURS FOR 3 DAYS 09/23 completed Not Available Not Available Not Available betamethaso ne, augmented 0.05 % topical cream PLEASE SEE ATTACHED FOR DETAILED DIRECTION S 10/25 completed Not Available Not Available Not Available sulindac 150 mg tablet TAKE 1 TABLET BY MOUTH TWICE A DAY WITH FOOD NEEDED. REPLACES CELEBREX 10/25 completed Not Available Not Available Not Available [...] completed Not Available Not Available Not Available methocarbam ol 750 mg tablet TAKE 1 TABLET NEEDED BY ORAL ROUTE AT BEDTIME FOR 30 DAYS, FOR MUSCLE SPASMS. active Not Available Not Available No t Available erythromyci n 5 mg/gram (0.5 %) [...] completed Not Available Not Available Not Available albuterol sulfate HFA 90 mcg/actuati on aerosol inhaler INHALE 2 PUFFS INTO THE LUNGS EVERY 4 HOURS NEEDED FOR 30 DAYS active Not Available Not Available No t Available norethindro ne (contracept daniel) 0.35 mg tablet TAKE 1 TABLET BY MOUTH EVERY DAY 10/25 completed Not Available Not Available Not Available celecoxib 100 mg capsule TAKE 1 CAPSULE BY MOUTH TWICE A DAY FOR 30 DAYS 10/25 completed Not Available Not Available Not Available ondansetron 4 mg disintegrat ing tablet PLACE 1 TABLET EVERY 4-6 HOURS BY TRANSLING UAL ROUTE NEEDED. 07/16 completed Not Available Not Available Not Available amoxicillin 875 mg-potassiu m clavulanate 125 mg tablet Take 1 tablet every 12 hours by oral route for 10 days. 06/09 completed Not Available Not Available Not Available oxycodone 5 mg tablet TAKE 1 TABLET BY MOUTH TWO TIMES A DAY NEEDED FOR SEVERE PAIN 10/25 completed Not Available Not Available Not Available cyclobenzap rine 5 mg tablet TAKE 1 TABLET BY MOUTH EVERY 12 HOURS NEEDED 06/09 completed Not Available Not Available Not Available Celebrex 10/25 completed Not Available Not Available Not Available Yulissa [facility] active Not Available Not Available Not Available Eliquis 5 mg tablet Take 1 tablet twice a day by oral route as directed for 90 days. 2024 active Not Available Not Available Not Avai lable Eliquis DVT-PE Treatment 30-Day Starter 5 mg (74 tablets) in dose pack TAKE 2 TABLET BY MOUTH 2 TIMES A DAY FOR 7 DAYS FOLLOWED BY 1 TABLET BY MOUTH TWICE DAILY FOR 23 DAYS active Not Available Not Available No t Available Vitals Date Recorded Body height Body mass index (BMI) Body weight Heart rate Oxygen saturation Oxygen saturation in Arterial blood by Pulse oximetry Systolic And Diastolic Provider Name and Address Organization Details Last Updated DateTime 5 169.55 cm 22.7 kg/m2 21503.3 g 66 /min 96 % 96 % 124/82 mm[Hg] Natali Villaseñor [facility] 5 11:37:02 Date Recorded Body height Body mass index (BMI) Body weight Heart rate Oxygen saturation Oxygen saturation in Arterial blood by Pulse oximetry Systolic And Diastolic Provider Name and Address Organization Details Last Updated DateTime 5 169.55 cm 22.7 kg/m2 08216.3 g 69 /min 98 % 98 % 104/60 mm[Hg] Danielle Soto [facility] 5 10:33:37 Date Recorded Body height Body mass index (BMI) Body weight Heart rate Oxygen saturation Oxygen saturation in Arterial blood by Pulse oximetry Systolic And Diastolic Provider Name and Address Organization Details Last Updated DateTime 5 169.55 cm 23 kg/m2 85083.4 1 g 81 /min 97 % 97 % 128/88 mm[Hg] Natali Rashid [facility] 5 14:40:27 Date Recorded Body height Body mass index (BMI) Body weight Heart rate Oxygen saturation Oxygen saturation in Arterial blood by Pulse oximetry Systolic And Diastolic Provider Name and Address Organization Details Last Updated DateTime 5 169.55 cm 22.9 kg/m2 93488.8 9 g 80 /min 98 % 98 % 110/68 mm[Hg] Danielle Soto [facility] 5 10:09:49 Social History Question Answer Notes LastModified by [employer] Details LastModified Time Tobacco Smoking Status [facility] 12:07:26 What Is Your Level Of Caffeine Consumption? Moderate Information not available 09/23/2020 What Was The Date Of Your Most Recent Tobacco Screening? 11/21/2024 [email or web address] Information not available 11/21/2024 Sex: Unknown Functional Status Question Answer Note LastModified by [employer] Details LastModified Time Do you use any illicit or recreational drugs? No [email or web address] Information not available 06/09/2022 Do you or have you ever used any other forms of tobacco or nicotine? No [email or web address] Information not available 06/20/2024 What is your level of alcohol consumption? Occasional Information not available 09/23/2020 What is your exercise level? Moderate Information not available 09/23/2020 Mental Status None recorded. Family History Relationship Description Onset Age of this Age Resolved Age Notes LastModified by Organization Details LastModified Time Maternal Grandmother Malignant neoplastic disease [email or web address] Not available 08:36:28 Paternal Grandmother Malignant neoplastic disease [email or web address] Not available 08:36:28 Paternal Grandfather Heart disease [email or web address] Not available 2020 16:46:11 Paternal Grandfather Cerebrovascu lar accident [email or web address] Not available 02/2021 16:47:17 Father Arthritis [email or web address] Not availabl e 09/23/2020 16:46:23 Mother Arthritis [email or web address] Not availabl e 09/23/2020 16:46:23 Mother Atrial fibrillation [email or web address] Not available 11/06/2024 08:36:28 Medical History No medical history recorded. Gynecological History Statement/Question Response Date of Last Pap Smear 06/19/2022 Obstetrics History GPAL:G 0 P 0 0 0 0 Immunizations Vaccine Type Date Status Note Provider Nam e and Address Organization Details Recorded Time COVID-19, mRNA, LNP-S, PF, 30 mcg/0.3 mL dose 1 completed Shanna salamanca [facility] 09/23/2020 12:06:54 COVID-19, mRNA, LNP-S, PF, 30 mcg/0.3 mL dose 1 completed Shanna salamanca [facility] 09/23/2020 12:07:04 Influenza, split virus, quadrivalent, preservative 1 completed Negro Gonzáles DO [address] [place] [address], [address], [facility] 06/03/2021 09:59:58 influenza, unspecified formulation 2 completed Shanna salamanca [facility] 02/16/2022 10:54:28 Past Encounters Encounter ID Performer Location Encounter Start Date Encounter Closed Date Diagnosis/Indication Diagnosis SNOMED-CT Code Diagnosis ICD10 Code Diagnosis IMO Codes Diagnosis Note [id number] Negro Gonzáles DO [facility] [address] [place] [address],[place] [address] 09/23/2020 11:58:59 09/23/2020 12:48:13 Anaplasmosis 33584009 A77.49 s/p hospitaliz ation with a lot of sequelaefa tiguepalpi tationsabd om painexerti onal dyspneatre morsall these are seen following a severe anaplasmos is infection Intermitte nt palpitations 138150828 R00.2 [id number] Negro Gonzáles [facility] [address] [address] 06/03/2021 09:54:56 06/03/2021 10:41:22 Active or passive immunization 644255654 Z23 utd Adult heal th examination 566692128 Z00.01 [id number] Negro Gonzáles [facility] [address] [facility] [address],[place] [address] 07/16/2021 14:45:57 07/18/2021 16:23:32 Acute sinusitis 14983742 J01.01 will fu with starting abx [id number] ISAEL CROOKS [facility] [address] [facility] [address] [address] 11/05/2021 10:28:12 11/05/2021 11:02:11 Impacted cerumen 79994591 H61.22 resolved Acute otitis media 15404 03 H65.02 will start on amox [id number] Negro Gonzáles [facility] [address] [facility] [address] [address] 02/18/2022 10:08:42 02/18/2022 14:15:56 Acute sinusitis 60189649 J01.01 [id number] Negro Gonzáles [facility] [address] [facility] [address] [address] 06/09/2022 11:57:34 06/09/2022 13:26:35 Active or passive immunization 083378476 Z23 utd Adult heal th examination 797027109 Z00.00 Melanocyti c nevus of skin 479705407 D22.9 pt [place] [id number] Negro Gonzáles [facility] [address] [facility],[place] [address] 10/16/2022 11:18:17 10/16/2022 15:34:17 Acute sinusitis 45657772 J01.01 start singulair Impacted c erumen of bilateral ears 3038126129 931661 H61.23 lavaged done both earswax removed on the left side Acute otitis media 60869 03 H65.02 will start on amox Chronic re current sinusitis 525151642 J32.1 will start screening [id number] Negro Gonzáles [facility] [address],[place] [address] 05/16/2023 07:49:59 05/17/2023 08:36:21 Orbital cellulitis 776343559 H05.013 restart medication , did not take metro last time, will have her start that now with the levo for more coverage given re-occuren ce of this [id number] Negro Gonzáles [facility] [address],[place] [address] 06/15/2023 10:03:56 06/15/2023 13:59:43 Active or passive immunization 387675606 Z23 mid Adult heal th examination 085853099 Z00.00 Dysplastic nevus of skin 486242765 D22.9 Chronic sinusitis 301247 00 J32.9 [id number] Negro Gonzáles [facility] [address] [facility],[place] [address] 11/22/2023 09:18:28 11/22/2023 13:55:25 Abnormal weight gain 630646362 R63.5 will set up with lab work Loss of hair 354006117 L 65.8 will set up with lab work Nail changes 503183461 L 62 will set up with lab work Hyperlipidemia 85890310 E78.49 will set up with lab work [id number] Negro Gonzáles [facility] [address] [facility], [facility] [place] [address] 12/20/2023 14:04:50 12/20/2023 14:33:03 Depression screening 834744104 Z13.31 SCREENING NEGATIVE Skin lesion 06515577 L98 .9 will monitor Cellulitis of skin 73163 1002 L03.115 will set up with doxycyclin e and wound swab to test for bacterial infectionc ould be bug Hyperlipidemia 40085588 E78.49 will set up with lab work Pain in left foot 324863 6860 89065 M79.672 will set up with L foot [id number] Negro Gonzáles [facility] [address] [facility],[place] [address] 03/27/2024 09:26:22 03/27/2024 13:43:07 Pain of left hip joint 5079550422 05977 M25.552 f/u XR, will most likely need MRI r/o bursitis vs labral tear Carpal ayaka alicia syndrome of right wrist [id number] 05522 G56.01 start with carpal tunnel/cer vical rad work uppossible EMG Cervical radiculopathy [id number] M54.12 will set up with XR [id number] Negro Gonzáles [facility] Internal [facility] [address] [facility],[place] [address] 06/07/2024 09:20:00 06/07/2024 10:32:27 Pain of left calf [id number] M79.662 [id number] Negro Gonzáles [facility] Internal [facility] [address] [facility],[place] [address] 06/20/2024 10:26:34 06/20/2024 14:04:37 Hypercholesterolemia 66810201 E78.00 Serum ferr itin above reference range [id number] R77.8 [id number] Negro Gonzáles [facility] [address],[place] [address] 06/09/2024 11:27:36 06/09/2024 12:07:32 Rupture of synovial popliteal cyst [id number] M66.0 severe pain [id number] Negro Gonzáles 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 Medicine [address] [facility],[place] [address] 11/06/2024 08:33:37 11/06/2024 10:07:39 Pulmonary embolism [id number] I26.93 [id number] will set up US echo, needs new order Dyspnea [id number] R06.02 [id number] resolved [id number] Negro Gonzáles [facility] Medicine [address] [facility], [place] [address] 11/21/2024 10:02:09 11/21/2024 10:46:14 Pulmonary embolism [id number] I26.93 [id number] will set up US echo, needs new order Health Concerns Section Related Observation LastModified by Organization Detai ls LastModified Time None Recorded Concern Status LastModified by Organization Details LastModified Time None Recorded Advance Directives Directive None Recorded Payers Insurance Date Sequence Insurance Name Policy Number Policy Cool Covered Member ID Cool Member ID Guarantor Name 11/18/[address] [facility] (POS) [id number] Sarthak Garcia [id number] Nasreen Garcia Notes Date Note Type Note Provider Name a nd Address Organization Details Recorded Time 06/09/2024 text/html ROS as noted in the HPI noted persistant recurrent pain and swelling of the lower leg that has been onging and has been so severe as to keepher awakesome dyas has been tolerable other days just raging pain and can come in waves Negro Gonzáles, DO [address] [place] [address], [phone], [facility] Internal Medicine 06/16/2024 13:25:41 06/20/2024 text/html ROS as noted in the HPI Negro Gonzáles, DO [address] [facility], [place], [address], [facility] 06/20/2024 11:08:17 10/25/2024 text/html ROS as noted in the HPI hospital /dc patient presented to the ER for evaluation of chest pain after moving furniturenoted chest tightness and difficulty breathing CXR was negative, lab work ordered, troponin unremarkable, no EKG changes indicating ACS, CT D Dimer elevated, CTA ordered showing pulmonary embolism reviewed with patient, no known current causes for the PEno sign of DVT started on Eliquis and d/c stable, per hospital guidelines no evidence for severe complications from the PE, no right heart strain, vitals are stable, d/c to outpatient management TODAY: Questions pt had for her hospital f/u (recent diagnosis of a PE): Now a PE Here are the questions:Can I travel international while on the blood thinners in December time frame - Yes Physical exercise -when can I start that again? Yes, but patient has to be very careful with exertion and anything activity that could injury herself given she will bleed more Can I wake surf? Currently, no, but down the road when you recovered and possibly off the blood thinner yes Can I dive in the water from the boat? depends on the height of the boat, trauma for the fall can cause you to bleed What kind of water sports can I do if any? boating, kayaking, tubing What kind of movement breaks should I incorporate into my schedule and when including work and sleep times? sleep is fine to just continue to rest, during the day getting up every hour to two hours and moving to prevent blood clots due to pooling blood and new hx How long am I a fall risk or be worried about bleeding injuries? As long as you are on the blood thinner you are at a higher risk for complications from injury due to the blood thinner Other than the nonsteroidal and control pills are there other things I should not take or consume while on the blood thinners? [place]'s Wart which can interact with it and decrease it's effectiveness, careful of tumeric and fish oil as it can increase the amount you bleed, some abx can interact but nothing that would be given to you How long can I expect the pain to last? When will it more or less go away? Can take up to a few weeks to a few months depending on the extent of the clot, it is due to the congestion of the blood vessels that lead to inflammation and tissue damage, which hurts, it will resolve as the tissue healsno evidence of cardiac involvement, still recommend fu echo when she goes for CTA repeat to ensure resolution of clot eliquis will be used 3 to 6 mos depending on work upif there is a sign of a condition that provoked the clot, the patient will most likely need to be anti-coagulated for the rest of her life Cortisone injection in both knees 10/03 w/ reaction - could that have had anything to do with the clots if you had an allergic reaction it could have prompted an overreaction from your immune system and over production of blood cells which could have clumped together causing the clot Why did this happen? uncertain, there is no exact proceeding event that would have caused ittypical causes include estrogen use, sedentary lifestyle, recent surgery, recent surgery, certain autoimmune conditions (antiphospholipid syndrome, certain medication usages, genetic mutation causing a clotting d/oHematologist referral? possibly, recommending coagulation d/o labs prior to referral ISAEL CROOKS [address] [place] [address], [place], [address], [facility] 10/25/2024 15:33:11 11/06/2024 text/html ROS as noted in the HPI c/o sob, chest discomfort per patient case: States that her headache came back last night, pretty bad all night/morning. Slightly better now, been using Tylenol. Has been shaking, slight SOB, pain in lower back left side all day today. All these things together and she is a little worried. Please advise. the patient is here today for a f/u based on her symptomsthe patient has been having some chest discomfort and sobwhich could be related to PE causing discomfort which is what she is experiencing pain the patient was having the discomfort in the back, mid back pain and swelling in the leg L sidethese symptoms have mostly resolvedstill having intermittent discomfort in lungs and some tachycardia, otherwise stable, only when she overdoes it the patient is still having some joint pain, since she can't use NSAID'sgiven alt meds, glucosamine and chondrotin has a friend with contacts in [place], may be setting her up w/ hematology which is fine, just need the name to send her results too, will f/u with me on contact info the patient is getting some hoarseness of voicehas seen ENT, no sig findings, just inflammation around the vocal cords ISAEL CROOKS [address] [place], [address], [facility] Internal Medicine 11/06/2024 09:12:06 11/21/2024 text/html ROS as noted in the HPI 2 week f/u the patient is here for her two week the patient is feeling okay thatthe chest pain is less prominent and chest tightness is also improving the patient is still taking her eliquis as directedthe patient has fu with pulm in Apr, they moved her CTA to [facility] echo in dec still will 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
--- OUTSIDE RECORDS SUMMARY | 2024-12-13 08:00 | XMS_ITS | Encounter Summary ---
Author Organization [facility] Address [address] [address] Phone Care Team Providers Care Frame Gate Mortiser Operator Name Role Phone Negro Gonzáles DO Primary Care Provider [phone] Encounter Details Date Type Department Care Team ([facility] st Contact Info) Description 09/23/2020 Transcribe Orders [facility] [address] [place] [address] Negro Gonzáles DO [address] [place] [address] [email or web address] Other ehrlichiosis (Primary Dx) Social History Tobacco Use Types Packs/Day Years Used Date Smoking Tobacco: Never Assessed Comments Unknown Sex and Gender Information Value Date Recorded Sex Assigned at Not on file Legal Sex Female 1:43 PM EDT Gender Identity Not on file Sexual Orientation Not on file documented as of this encounter Plan of Treatment Not on file documented as of this encounter Results * Sedimentation rate (ESR) (09/23/2020 1:48 PM EDT) ESR 13 0 - 20 mm/h [facility] Blood 09/23/2020 1:48 PM EDT 09/23/2020 2:02 PM EDT us Negro Gonzáles DO LAB BLOOD ORDERABLES Final Resul t [facility] [address] [place] [address] * Comprehensive metabolic panel (09/23/2020 1:48 PM EDT) SODIUM 140 133 - 146 mmol/L [facility] POTASSIUM 3.6 3.3 - 5.1 mmol/L [facility] CHLORIDE 104 96 - 108 mmol/L [facility] CO2 25 21 - 35 mmol/L [facility] BUN 13 6 - 19 mg/dL [facility] CREATININE 0.60 0.5 - 1.5 mg/dL [facility] GLUCOSE 75 70 - 99 mg/dL [facility] ALBUMIN 4.6 3.9 - 4.8 g/dL [facility] TOTAL PROTEIN 7.5 6.5 - 8.0 g/dL [facility] CALCIUM 9.7 8.4 - 10.3 mg/dL [facility] ALKALINE PHOSPHATASE 89 39 - 117 U/L [facility] TOTAL BILIRUBIN 0.5 0.0 - 1.2 mg/dL [facility] AST 32 0 - 37 U/L [facility] ALT 28 0 - 40 U/L [facility] GLOBULIN 2.9 1 - 4.8 g/dL [facility] EGFR 112 >59 mL/min/1.7 3m2 [facility] Comment:Estimated glomerular filtration rate calculated using the CKD-EPI equation. ANION GAP 15 10 - 20 mmol/L [facility] Blood 09/23/2020 1:48 PM EDT 09/23/2020 2:02 PM EDT us Negro A Bigda DO LAB BLOOD ORDERABLES Final Resul t [facility] [address] [place] [address] * (ABNORMAL) CBC and differential (09/23/2020 1:48 PM EDT) WBC 8.31 4.00 - 11.00 K/uL [facility] RBC 4.29 3.72 - 5.30 M/uL [facility] HGB 13.4 10.6 - 15.5 g/dL [facility] HCT 40.2 32.0 - 45.0 % [facility] PLT 245 140 - 430 K/uL [facility] MCV 93.7 78.0 - 97.0 fL [facility] MCH 31.2 25.0 - 33.0 pg [facility] MCHC 33.3 32.0 - 36.0 g/dL [facility] RDW 13.5 11.0 - 16.0 % [facility] MPV 10.0 8.4 - 12.8 fl [facility] NRBC 0.00 0 /100 WBCs [facility] ABSOLUTE NRBC 0.00 0 K/uL [facility] DIFF METHOD Auto [facility] NEUTS 52.5 43.0 - 75.0 % [facility] LYMPHS 37.8 18.2 - 47.4 % [facility] MONOS 7.8 4.00 - 11.00 % [facility] EOS 0.8 0.0 - 8.0 % [facility] BASOS 0.7 0.0 - 2.0 % [facility] Granulocytes, immature (%) 0.4 0.0 - 0.9 % [facility] ABSOLUTE NEUTS 4.36 1.80 - 7.70 K/uL [facility] ABSOLUTE LYMPHS 3.14(H) 1.00 - 3.10 K/uL [facility] ABSOLUTE MONOS 0.65 0.20 - 0.80 K/uL [facility] ABSOLUTE EOS 0.07 0.00 - 0.80 K/uL [facility] ABSOLUTE BASOS 0.06 0.00 - 0.09 K/uL [facility] Granulocytes, immature 0.03 0.00 - 0.05 K/uL [facility] Blood 09/23/2020 1:48 PM EDT 09/23/2020 2:02 PM EDT us Negro Gonzáles DO LAB BLOOD ORDERABLES Final Resul t [facility] [address] [place] [address] documented in this encounter Visit Diagnoses Diagnosis Other ehrlichiosis- Primary documented in this encounter Care Teams Frame Gate Mortiser Operator Relationship Specialty Start Date End Date Negro Gonzáles DO [email or web address] PCP - General Internal Medicine 09/23/20 documented as of this encounter Additional Source Comments The information contained in this document represents components of the legal health record. It is not the complete legal health record.[facility]
--- OUTSIDE RECORDS SUMMARY | 2024-12-13 08:00 | XMS_ITS | Clinical Summary ---
Author Organization [facility] Address [address] [place] [address] Care Team Providers Care Hadoop Analyst Name Role Phone Fly Wagner DO Primary Care Provider [phone] Social History Tobacco Use Types Packs/Day Years [...] Cancer Screening (Colonoscopy) 07/08/2023 Influenza Vaccine (#1) 2024 Pneumococcal Vaccine Aged Out No long er eligible based on patient's age to complete this topic RSV Ped < 20 months Aged Out No longe r eligible based on patient's age to complete this topic Care Teams Hadoop Analyst Relationship Specialty Start Date End Date Fly Wagner DO [address] [place] [id number] PCP - General Family Medicine 05/07/15
--- NOTE | 2024-12-13 08:15 | CA_ITS ---
Transthoracic Echocardiogram Patient (Last, First, Middle): Nasreen Garcia, Gender: Female Date of : 1980 Age: 44 Procedure Date: 12/13/2024 Procedure Type: Transthoracic Echocardiogram Location: OP Height: 167.64 cm Weight: 65.77 kg BSA: 1.74 m2 Heart Rate: bpm BP: 115 / 75 mmHg Internet Retailer: SHANA Referring MD: Chandrika KIRKLAND Symptoms: I26,93 PUL EMBOLI Study Quality: Adequate ECG Rhythm: Sinus Conclusions: - The left ventricular systolic function is normal. The calculated ejection fraction is 65% by biplane method. - Suggestion of inferior/ inferoseptal hypokinesis in some views, but can also be artifactual. - No obvious valvular pathology seen on this study. Findings Left Ventricle Normal left ventricular cavity size. There is normal left ventricular wall thickness. The left ventricular systolic function is normal. The calculated ejection fraction is 65% by biplane method. Diastolic function is normal for age. Suggestion of inferior/ inferoseptal hypokinesis in some views, but can also be artifactual. Right Ventricle Normal right ventricular cavity size and systolic function. Atria Both atria are normal in size. Aortic Valve There is a normal trileaflet aortic valve. There is no aortic valve stenosis. There is no aortic valve regurgitation. Mitral Valve The mitral valve appears normal. There is no mitral valve regurgitation. There is no mitral valve stenosis. Pulmonic Valve The pulmonic valve is likely normal. Tricuspid Valve There is mild tricuspid valve regurgitation. Borderline pulmonary artery systolic pressure. Great Vessels The asc aorta is normal in size. Venous The inferior vena cava is normal in size and collapses less than 50% with inspiration. Pericardium/Pleural There is a trivial pericardial effusion. Prior Study Comparison No prior study available for comparison. Recommendations, Care & Conclusions No obvious valvular pathology seen on this study. Measurements 2D Linear Measurements IVSd: 0.78 0.6-0.9/0.6-1.0 cm LVIDd: 4.48 3.9-5.3/4.2-5.9 cm LVIDd Index: 2.57 2.4-3.2/2.2-3.1 cm/m2 LVIDs: 2.89 2.0-3.6 cm LVPWd: 0.53 0.7-1.1 cm LA Diam: 2.30 2.7-3.8/3.0-4.0 cm LAIDs Index: 1.32 1.5-2.3 cm/m2 LV Mass: 107.94 67-162/88-224 g LV Mass Index: 62.03 43-95/49-115 g/m2 LVOT Diam: 1.90 3.0+(-)1.3 cm 2D Systolic Function EF 4C: 62.90 >55% EF 2C: 68.40 >55% EF BiP: 64.60 >55% Mitral Valve MV Pk E: 0.94 MV PK A: 0.60 MV Decel Time: 265.00 E/A: 1.60 E'Lateral: 12.80 E'Medial: 11.40 E/E' Med: 8.20 E/E' Lat: 7.30 PHT: 78.00 MVA PHT: 2.82 Decel [place]: 3.54 Aortic Valve AoV Pk Yemi: 1.91 AoV Mn Yemi: 1.24 AoV VTI: 0.41 AoV Pk Grad: 15.00 Aov Mn Grad: 7.00 JEANA Cont.VTI: 2.14 LVOT LVOT Pk Yemi: 1.45 LVOT Mn Yemi: 0.92 LVOT VTI: 0.31 LVOT Pk Grad: 8.00 LVOT Mn Grad: 4.00 LVOT Diam: 1.90 LVOT Area: 2.84 Diastolic Function MV Pk E: 0.94 MV Pk A: 0.60 E/A: 1.60 E'Medial: 11.40 E/E' Med: 8.20 E' Laterial: 12.80 E/E' Lat: 7.30 Right Ventricle TAPSE (mm): 27.70 TVS' Yemi: 12.50 Tricuspid Valve TR Pk Yemi: 2.70 TR Pk Grad: 29.00 RA Press: 8.00 RVSP: 37.00 Great Vessels Aorta Sinus of Valsalva: 2.35 2.0-3.[address] [place]: 1.85 1.7-3.4 cm Ao Asc: 2.20 2.1-3.4 cm Pulmonary Veins Pulm Vein S/D 1.00 Updated in Other Vendor System with Status of Final Alan Tejada MD electronically signed on 12/14/2024 12:09:52 PM with status of Final
== END ==
LOC: HO.CARD 07:55
PROVIDERS: PCP Internal Medicine; Visit Provider Physician Assistant
DX: I26.93 Single subsegmental thrombotic pulmonary embolism without acute cor pulmonale (principal)
CPT/HCPCS: 93306

== ENCOUNTER → 2024-12-13 08:15 | Outpatient (BNV) | payer OTHER, SELFPAY | PROVIDERS: PCP Internal Medicine; Visit Provider Internal Medicine | DX: I26.93 Single subsegmental thrombotic pulmonary embolism without acute cor pulmonale (principal) | CPT/HCPCS: 93306 ==